=== PATIENT | male | born 2000 | race Caucasian/White ===

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

== ENCOUNTER 2023-12-31 14:12 | Emergency (ER) | payer OTHER, SELFPAY ==
--- NOTE | ~2023-12-31 | XR_ITS ---
EXAMINATION: XR KNEE, RIGHT CLINICAL INFORMATION: Fall. Pain. COMPARISON: None available. TECHNIQUE: Two views of the right knee. FINDINGS: There is no fracture or dislocation. Joint spaces are well-maintained. There may be a small suprapatellar effusion. The regional soft tissue is normal in appearance. XR/XR knee RT 2V IMPRESSION: No fracture or dislocation. Possible small suprapatellar effusion.
[2023-12-31 14:40] VITALS: BP 135/88; PULSE 66; RESP 18; TEMP 36.4; O2SAT 100; BMI 31.4
--- NOTE | 2023-12-31 14:40 | ED_ITS ---
HPI - Extremity Problem General Chief complaint: Extremity Injury, Lower Stated complaint: R Knee Pain Work Injury 12/31/23 Time Seen by Provider: 12/31/23 15:59 Source: patient Mode of arrival: ambulatory Limitations: no limitations History of Present Illness HPI Narrative: 23 year male no significant past medical history presents emergency department with complaints of right knee pain. He reports that he was working, the cartilage, when he fell through a hole in the ground. He reports his right leg sustained abrasions to the medial knee many he has been having pain with ambulation. He denies any erythema, swelling, ecchymosis, or noted deformity. Pertinent positives and negatives discussed in HPI MD Complaint: extremity pain Related Data Allergies Allergy/AdvReac Type Severity Reaction Status Date / Time No Known Allergies Allergy Verified 12/31/23 14:42 Review of Systems Review of Systems: Yes all other systems are reviewed and are negative [facility] Social History Social History Advance Directives: No Advance Directives Information Provided: No Do you have a plan to hurt others: No Plan Physical Exam Vital Signs: Vital Signs: Last Vital Signs Temp 97.7 F 12/31/23 16:57 Pulse 78 12/31/23 16:57 Resp 16 12/31/23 16:57 BP 137/80 12/31/23 16:57 Pulse Ox 100 12/31/23 16:57 O2 Del Method Room Air 12/31/23 16:57 BMI result Body Mass Index 31.4 Nursing notes and vital signs reviewed. GENERAL APPEARANCE: A&0 x 4, generally well appearing, no acute distress HENMT: Normal to inspection, atraumatic, face symmetrical. Normal external e ars, nose, and oropharynx clear. EYE: PERRLA, EOM intact, structures appear normal NECK: Supple without stiffness or restricted ROM. HEART: Normal rate and regular rhythm, normal S1/S2, no M/R/G LUNGS: LS CTA, moving air well. Able to speak in complete sentences. No crackles, wheezes, or rhonchi auscultated BACK: No CVAT, no obvious deformity EXTREMITIES: Moving all extremities. Abrasions right medial knee with no evidence of bleeding. No deformities noted. Normal capillary refill. NEUROLOGICAL: Alert and oriented, moving all 4 extremities with equal strength. CN not formally tested but appearing grossly intact. Observed to ambulate with normal gait. Cognition normal SKIN: Warm and dry without any lesions, rash, or visible sores Course Course Course Narrative: This is a rapid medical exam completed by Philip YOON: Additional HPI, ROS, PE not included below will be deferred to primary provider. Injury to right knee at work when he fell through a hole. Reports anterior and medial knee pain with movement. States he has abrasions to the medial knee. Medications Administered Discontinued Medications Generic Name Dose Route Start Last Admin Trade Name Freq PRN Reason Stop Dose Admin Diphtheria/Tetanus/Acell Pertussis 0.5 ml 12/31/23 16:58 12/31/23 17:02 Diphth,Pertus(Acell),Tet Adult 0.5 Ml Syringe IM 12/31/23 16:59 0.5 ml .ONCE ONE Administration Medical Decision Making Medical Decision Making MDM Narrative: Old records reviewed for previous imaging, lab studies, ECGs, and notes. Patient was assessed the emergency department with no acute distress or toxicity noted. X-ray right knee completed showing no evidence of acute findings. Patient's symptoms are consistent with a strain and patient educated to rest, ice, compress, and elevate knee for comfort with Warren wrap provided. Patient is safe for discharge at this time with plan for [id number] Tylenol and/or NSAID such as ibuprofen or naproxen for fever/discomfort with dosing as per packaging. HPI, PE, diagnostics, and plan discussed with patient and family with no unanswered questions at this time. Strict return precautions given to return to the emergency department with new, worsening, or concerning emergent symptoms. Recommended to follow-up with there primary care provider in 24-48 hours for further treatment and management. Differential Diagnosis Differential Diagnoses: The differential diagnosis associated with the presentation includes But not limited to strain, sprain, contusion, abrasion, fracture, dislocation Independent Interpretation I performed an independent interpretation of an: Plain X-Ray Interpretation: As negative for acute findings Radiology Impression Discussion of test interpretation with radiology: I have reviewed the radiologist's reading. Independent Historian Clinical information obtained from an independent historian. History obtained from or confirmed by: Friend Discharge Plan Discharge Clinical Impression: Right knee injury Patient Disposition: Home, Self-Care Instructions: Knee Pain (ED), R.I.C.E. Treatment (ED) [place] [facility] [place] [facility] [place] [facility] [place] [facility] [place] [facility] [Provider Group] Stand Alone Forms: Work/School Release Discharge Date/Time: 12/31/23 17:46 Print Language: Albanian
[2023-12-31 16:57] VITALS: BP 137/80; PULSE 78; RESP 16; TEMP 36.5; O2SAT 100
[2023-12-31] MEDS: Diphth,Pertus(ACell),Tet Adult 0.5 ML SYRINGE IM (17:02)
== END 2023-12-31 17:46 | disposition home or self-care (01) ==
LOC: HO.ED 17:13
PROVIDERS: Emergency Provider Student in an Organized Health Care Education/Training Program
DX: S80.211A Abrasion, right knee, initial encounter (principal); W17.2XXA Fall into hole, initial encounter; Y93.9 Activity, unspecified; Y92.9 Unspecified place or not applicable; Y99.0 Civilian activity done for income or pay
CPT/HCPCS: 73560; 90471; 90715; 99282; 99284

== ENCOUNTER 2024-07-21 23:49 | Emergency (ER) | payer MEDICAID, SELFPAY ==
[2024-07-21 23:51] VITALS: BP 114/72; PULSE 89; RESP 16; TEMP 37.1; O2SAT 96; BMI 32.6
--- NOTE | 2024-07-22 01:17 | ED.NECK ---
HPI - Neck Pain/Injury General Chief Complaint: Neck Pain/Injury Stated Complaint: neck pain Time Seen by Provider: 07/22/24 00:48 History of Present Illness HPI Narrative: Patient is a 23-year-old male claims he was pulled over by police subsequently was hand cuffed. He claims he was elbowed in the neck. Patient complaining of pain to the right side of the neck. Radiating to the ear. There was no loss of consciousness no nausea no vomiting. There is no focal weakness. There is no bowel urinary incontinence. Patient from home. Pain is worse with specific movements. No change in vision. No change in voice. Able to swallow without any difficulty no difficulty breathing. Related Data Previous Rx's ?Medication ?Instructions ?Recorded ibuprofen 400 mg tablet 400 mg PO Q6H PRN pain #20 tabs 07/22/24 Allergies Allergy/AdvReac Type Severity Reaction Status Date / Time No Known Allergies Allergy Verified 07/21/24 23:55 Review of Systems Review of Systems: Positive neck pain Yes all other systems are reviewed and are negative [facility] Past Medical History Attestation statement: The following information was validated with the patient. Social History Social History Advance Directives: No Physical Exam Vital Signs: Vital Signs: Last Vital Signs Temp 98.8 F 07/21/24 23:51 Pulse 89 07/21/24 23:51 Resp 16 07/21/24 23:51 BP 114/72 07/21/24 23:51 Pulse Ox 96 07/21/24 23:51 O2 Del Method Room Air 07/21/24 23:51 BMI result Body Mass Index 32.6 Appearance: Alert. Oriented X3. No acute distress. Eyes: Pupils equal, round and reactive to light. ENT: Pharynx normal. There is no posterior C-spine tenderness elicited on palpation. Trachea is midline. Neck: Normal inspection. Neck supple. No lymph nodes noted. No crepitus CVS: Normal heart rate and rhythm. Pulses normal. Normal S1 and S2 Respiratory: No respiratory distress. Breath sounds normal. No Wheezing. No rales Abdomen: Soft and nontender. No rigidity. No distention. good BS x4 Skin: Skin warm and dry. Normal skin color. Normal skin turgor. Extremities: No lower extremity edema. Neurovascular intact to all extremities. No Lacerations. No Rash Neuro: Oriented X 3. No motor deficit. No sensory deficit. Moving all extermities. No slurred speech Medical Decision Making Medical Decision Making MDM Narrative: Well-appearing neurologically intact there is no posterior C-spine tenderness there is no overt distracting injury there was no alcohol involved there is no focal weakness felt at this time patient does not meet nexus criteria for CT C-spine there is no airway compromise there is no change in voice is no change in breathing unlikely there is a airway issue will discharge patient home close follow-up on an outpatient basis Differential Diagnosis Differential Diagnoses: The differential diagnosis associated with the presentation includes Next brain cervical spine fracture Social Determinants Patient?s care significantly limited by Social Determinants of Health including: Problems related to primary support group Discharge Plan Discharge Clinical Impression: Acute neck sprain Patient Disposition: Home, Self-Care Instructions: Acute Neck Pain (ED) Prescriptions: New ibuprofen 400 mg tablet 400 mg PO Q6H PRN (Reason: pain) Qty: 20 0RF Referrals: [facility] [Physician] - 07/24/24 Print Language: [place]ib[place]ian
[2024-07-22 01:30] VITALS: BP 116/73; PULSE 78; RESP 12; TEMP 36.7; O2SAT 98
[2024-07-22] MEDS: Ibuprofen 400 MG TABLET PO (01:35)
[2024-07-22 01:41] VITALS: BP 116/73; PULSE 78; RESP 12; TEMP 36.7; O2SAT 98
== END 2024-07-22 01:43 | disposition home or self-care (01) ==
PROVIDERS: Emergency Provider Emergency Medicine Emergency Medical Services
DX: S13.9XXA Sprain of joints and ligaments of unspecified parts of neck, initial encounter (principal); Y35.813A Legal intervention involving manhandling, suspect injured, initial encounter; Y93.9 Activity, unspecified; Y92.9 Unspecified place or not applicable; Y99.9 Unspecified external cause status
CPT/HCPCS: 99283